=== PATIENT | female | born 1975 | race African-American/Black ===

== ENCOUNTER 2022-06-12 00:24 | Inpatient (IN) | payer BC, MEDICAID ==
[~2022-06-12] VITALS: Ht 170.2 cm; Wt 45.4 kg
[~2022-06-12 00:24] MED LIST: NO MEDS
[2022-06-12 02:23] LABS: EOSINOPHILS % 2.2 % (0.0-5.0); HEMATOCRIT. 46.8 % (36.0-48.0); HEMOGLOBIN. 15.4 g/dL (12.0-16.0); LYMPHOCYTES % 25.1 % (20.0-50.0); MEAN CORPUSCULAR VOLUME 88.3 fL (81.0-99.0); MEAN PLATELET VOLUME 9.4 fl (7.4-10.4); MONOCYTES % 8.1 % (2.0-8.0); NEUTROPHILS % 63.6 % (40.0-76.0); PLATELET 211 x1000/uL (130-400); RED CELL DISTRIBUTION WIDTH 14.3 % (11.6-14.6)
[2022-06-12] MEDS ORDERED: LORAZEPAM 2MG/ML CPJ IV ONE (02:30)
[2022-06-12] MEDS ORDERED: HALOPERIDOL LACTATE 5MG/ML VIAL IM ONE (02:45)
[2022-06-12 03:02] LABS: CHLORIDE 102 mEq/L (98-107)
[2022-06-12 03:21] LABS: ETHANOL BLOOD < 10 mg/dL
[2022-06-12 03:37] LABS: CLARITY URINE CLEAR (CLEAR); COLOR URINE DARK YELLOW (YELLOW); KETONES URINE 2+ (NEGATIVE); LEUKOCYTE ESTERASE URINE 1+ (NEGATIVE); NITRITE URINE NEGATIVE (NEGATIVE); OCCULT BLOOD URINE NEGATIVE (NEGATIVE); PH URINE 5.5 (4.5-8.0); PROTEIN URINE 1+ (NEGATIVE); SPECIFIC GRAVITY URINE 1.035 (1.005-1.030)
[2022-06-12 03:58] LABS: *AMPHETAMINES SCREEN URINE NEGATIVE (NEGATIVE); *BARBITURATES SCREEN URINE NEGATIVE (NEGATIVE); *BENZODIAZEPINES SCREEN URINE NEGATIVE (NEGATIVE); *COCAINE SCREEN URINE NEGATIVE (NEGATIVE); CANNABINOID URINE SCREEN NEGATIVE (NEGATIVE); METHADONE URINE SCREEN NEGATIVE (NEGATIVE); OPIATES URINE SCREEN NEGATIVE (NEGATIVE); PHENCYCLIDINE URINE SCREEN NEGATIVE (NEGATIVE)
[2022-06-12] MEDS ORDERED: CEFTRIAXONE 1 G PREMIX 50 ML IV NR (04:15)
[2022-06-12 11:27] VITALS: BP 108/70
[2022-06-12] MEDS: SODIUM CHLORIDE 0.9% 1,000 ML IV SCH (15:07)
[2022-06-12 16:00] VITALS: BP 113/76
[2022-06-12] MEDS ORDERED: NALOXONE HCL 0.4MG/ML VIAL IV PRN (18:30)
[2022-06-12 20:00] VITALS: BP 144/98
[2022-06-12] MEDS ORDERED: NON FORMULARY PATIENT HOME MED XX SCH (21:15)
[2022-06-12] MEDS ORDERED: MELATONIN 3MG TABLET PO PRN (21:30)
[2022-06-12 23:29] LABS: UCG SCREEN NEGATIVE
[2022-06-13 00:25] VITALS: BP 139/98
[2022-06-13] MEDS: SODIUM CHLORIDE 0.9% 1,000 ML IV SCH ×2 (01:54→14:51)
[2022-06-13 04:00] VITALS: BP 142/100
[2022-06-13 08:00] VITALS: BP 152/86
[2022-06-13 08:21] LABS: BASOPHILS % 0.8 % (0.0-2.0); EOSINOPHILS % 12.5 % (0.0-5.0); HEMATOCRIT. 44.3 % (36.0-48.0); HEMOGLOBIN. 14.9 g/dL (12.0-16.0); LYMPHOCYTES % 25.1 % (20.0-50.0); MEAN CORPUSCULAR HEMOGLOBIN 29.5 pg (28.0-32.0); MEAN PLATELET VOLUME 9.1 fl (7.4-10.4); MONOCYTES % 8.6 % (2.0-8.0); PLATELET 201 x1000/uL (130-400); RED BLOOD CELL COUNT 5.04 mill/uL (4.2-5.4); RED CELL DISTRIBUTION WIDTH 14.3 % (11.6-14.6)
[2022-06-13 08:24] LABS: CHLORIDE 109 mEq/L (98-107)
[2022-06-13 08:38] LABS: HCG SCREEN INDETERMINATE
[2022-06-13 08:39] LABS: T4 FREE 1.01 ng/dL (0.76-1.46)
[2022-06-13] MEDS: FOLIC ACID 1MG TABLET PO SCH ×3 (09:00→11:08)
[2022-06-13] MEDS ORDERED: CEFTRIAXONE 1,000 MG in DEXTROSE 5% WATER 50 ML IV SCH (09:00)
[2022-06-13] MEDS: THIAMINE HCL 500 MG in SODIUM CHLORIDE 0.9% 95 ML IV SCH ×3 (09:00→21:37)
[2022-06-13 10:13] LABS: VITAMIN B12 SERUM >2000 pg/mL pg/mL (211-911)
[2022-06-13] MEDS ORDERED: CIPR-263 MT (10:44)
[2022-06-13] MEDS: CEFTRIAXONE 1,000 MG in DEXTROSE 5% WATER 50 ML IV SCH (11:09)
[2022-06-13 12:00] VITALS: BP 150/90
[2022-06-13] MEDS ORDERED: LORAZEPAM 2MG/ML CPJ IV SCH (12:15)
[2022-06-13] MEDS ORDERED: DIATR MEGLU/DIATRIZOATE SOLN 30ML PO SCH (13:45)
[2022-06-13 17:05] LABS: INR 1.1; PROTHROMBIN TIME 11.8 sec (9.6-11.0)
[2022-06-13] MEDS: HYDROCODONE/ACETAMINOPHEN 5/325MG TABLET PO NR ×2 (18:15→19:08)
[2022-06-13 19:02] VITALS: BP 180/100
[2022-06-13] MEDS: CLONIDINE 0.1MG TABLET PO PRN (19:07)
[2022-06-13 20:00] VITALS: BP 144/109
[2022-06-14] VITALS (8 sets, daily range): BP systolic 145–197; BP diastolic 105–138
[2022-06-14] MEDS: SODIUM CHLORIDE 0.9% 1,000 ML IV SCH ×2 (01:17→17:35)
[2022-06-14] MEDS: THIAMINE HCL 500 MG in SODIUM CHLORIDE 0.9% 95 ML IV SCH ×3 (05:30→21:46)
[2022-06-14] MEDS: CLONIDINE 0.1MG TABLET PO PRN ×2 (05:53→20:33)
[2022-06-14] MEDS: FOLIC ACID 1MG TABLET PO SCH (10:15)
[2022-06-14] MEDS: CEFTRIAXONE 1,000 MG in DEXTROSE 5% WATER 50 ML IV SCH (10:17)
[2022-06-14 11:11] LABS: BASOPHILS % 1.1 % (0.0-2.0); EOSINOPHILS % 12.2 % (0.0-5.0); HEMATOCRIT. 36.6 % (36.0-48.0); HEMOGLOBIN. 12.2 g/dL (12.0-16.0); LYMPHOCYTES % 42.6 % (20.0-50.0); MEAN CORPUSCULAR HEMOGLOBIN 29.1 pg (28.0-32.0); MEAN CORPUSCULAR VOLUME 87.6 fL (81.0-99.0); MONOCYTES % 9.2 % (2.0-8.0); NEUTROPHILS % 34.9 % (40.0-76.0); PLATELET 162 x1000/uL (130-400); RED BLOOD CELL COUNT 4.18 mill/uL (4.2-5.4)
[2022-06-14] MEDS ORDERED: LORAZEPAM 1MG TABLET PO NR (11:45)
[2022-06-14] MEDS: HYDROCODONE/ACETAMINOPHEN 5/325MG TABLET PO PRN (20:34)
[2022-06-14 21:24] LABS: CHLORIDE 104 mEq/L (98-107)
[2022-06-14] MEDS ORDERED: IOHEXOL-350 100 ML BOTTLE ONE (22:17)
[2022-06-15 00:05] VITALS: BP 165/112
[2022-06-15 04:00] VITALS: BP 146/91
[2022-06-15] MEDS: THIAMINE HCL 500 MG in SODIUM CHLORIDE 0.9% 95 ML IV SCH ×3 (05:06→20:51)
[2022-06-15 08:00] VITALS: BP 148/89
[2022-06-15 08:07] LABS: BASOPHILS % 1.2 % (0.0-2.0); EOSINOPHILS % 13.9 % (0.0-5.0); HEMOGLOBIN. 14.4 g/dL (12.0-16.0); LYMPHOCYTES % 36.6 % (20.0-50.0); MEAN CORPUSCULAR HEMOGLOBIN 29.7 pg (28.0-32.0); MEAN CORPUSCULAR VOLUME 86.5 fL (81.0-99.0); MEAN PLATELET VOLUME 8.7 fl (7.4-10.4); MONOCYTES % 9.2 % (2.0-8.0); NEUTROPHILS % 39.1 % (40.0-76.0); PLATELET 190 x1000/uL (130-400); RED BLOOD CELL COUNT 4.85 mill/uL (4.2-5.4); RED CELL DISTRIBUTION WIDTH 13.8 % (11.6-14.6)
[2022-06-15 08:27] LABS: CHLORIDE 103 mEq/L (98-107)
[2022-06-15] MEDS: SODIUM CHLORIDE 0.9% 1,000 ML IV SCH ×2 (08:42→20:52)
[2022-06-15] MEDS: FOLIC ACID 1MG TABLET PO SCH (08:42)
[2022-06-15 12:00] VITALS: BP 156/98
[2022-06-15] MEDS: CEFTRIAXONE 1,000 MG in DEXTROSE 5% WATER 50 ML IV SCH (12:43)
[2022-06-15] MEDS: CLONIDINE 0.1MG TABLET PO PRN ×2 (17:15→20:51)
[2022-06-15 17:38] VITALS: BP 198/141
[2022-06-15 20:00] VITALS: BP 198/139
[2022-06-15] MEDS: HYDROCODONE/ACETAMINOPHEN 5/325MG TABLET PO PRN (20:51)
[2022-06-16] VITALS (7 sets, daily range): BP systolic 110–205; BP diastolic 63–140
[2022-06-16] MEDS: HYDROCODONE/ACETAMINOPHEN 5/325MG TABLET PO PRN (05:03)
[2022-06-16] MEDS: CLONIDINE 0.1MG TABLET PO PRN (05:03)
[2022-06-16] MEDS ORDERED: HALOPERIDOL LACTATE 5MG/ML VIAL IM NR (05:15)
[2022-06-16] MEDS: HYDRALAZINE 20MG/ML VIAL IV PRN ×2 (05:23→16:50)
[2022-06-16] MEDS ORDERED: BISACODYL 5MG TABLET PO SCH (09:00)
[2022-06-16 09:09] LABS: BASOPHILS % 1.2 % (0.0-2.0); HEMATOCRIT. 41.8 % (36.0-48.0); HEMOGLOBIN. 14.3 g/dL (12.0-16.0); LYMPHOCYTES % 32.2 % (20.0-50.0); MEAN CORPUSCULAR HEMOGLOBIN 29.7 pg (28.0-32.0); MEAN CORPUSCULAR VOLUME 86.8 fL (81.0-99.0); MEAN PLATELET VOLUME 9.4 fl (7.4-10.4); MONOCYTES % 8.6 % (2.0-8.0); PLATELET 192 x1000/uL (130-400); RED BLOOD CELL COUNT 4.82 mill/uL (4.2-5.4); RED CELL DISTRIBUTION WIDTH 13.7 % (11.6-14.6)
[2022-06-16] MEDS: FOLIC ACID 1MG TABLET PO SCH (12:01)
[2022-06-16] MEDS: CEFTRIAXONE 1,000 MG in DEXTROSE 5% WATER 50 ML IV SCH (12:01)
[2022-06-16] MEDS ORDERED: AMLO5TAB4 PO ×2 (12:59)
[2022-06-16] MEDS ORDERED: LOSA50TA41 MT (15:45)
[2022-06-16] MEDS ORDERED: LORAZEPAM 2MG/ML CPJ IV NR (17:00)
== END 2022-06-16 19:30 | disposition home or self-care (01) | DRG 52 ==
LOC: ER 00:24 → 7WST 04:54 → EDBEDREQTM 05:00 → EDBEDREQ 05:00 → ENRESERV 08:04
PROVIDERS: ADMIT Internal Medicine; ATTEND Internal Medicine
DX: G93.41 Metabolic encephalopathy (principal); R65.11 Systemic inflammatory response syndrome (SIRS) of non-infectious origin with acute organ dysfunction; D25.9 Leiomyoma of uterus, unspecified; G47.00 Insomnia, unspecified; I10 Essential (primary) hypertension; J32.3 Chronic sphenoidal sinusitis; N39.0 Urinary tract infection, site not specified; R63.4 Abnormal weight loss; Z68.1 Body mass index [BMI] 19.9 or less, adult
CPT/HCPCS: 36415; 70496; 70498; 70551; 71045; 71250; 74176; 76700; 76856; 80048; 80053; 80076; 80305; 80307; 80320; 80329; 81003; 81025; 82140; 82378; 82607; 82746; 82962; 83605; 84425; 84439; 84443; 84484; 84702; 84703; 85025; 85651; 86304; 86430; 93005; 93923; 99285; C1893; J0360; J0696; J1630; J2060; J3411; J7030; J7050; J7060; Q9963; Q9967; G0480